=== PATIENT | female | born 1950 | race Caucasian/White ===

== ENCOUNTER → 2016-06-03 | Outpatient (CLI) | payer OTHER | LOC: BMCIMAGING 14:22 | PROVIDERS: ATTEND Registered Nurse General Practice | DX: Z13.820 Encounter for screening for osteoporosis (principal); M85.80 Other specified disorders of bone density and structure, unspecified site ==

== ENCOUNTER 2017-01-27 20:48 | Emergency (ER) | payer MEDICAID ==
--- NOTE | 2017-01-27 21:01 | CPEKG ---
Heart Rate: 80 RR Interval: 750 P-R Interval: 168 QRSD Interval: 82 QT Interval: 384 QTC Interval: 443 P Chambers: 53 QRS Chambers: 15 T Wave Chambers: 65 EKG Severity - NORMAL ECG - EKG Impression: SINUS RHYTHM Electronically Signed By: Mj Machado 29-Jan-2017 11:30:34
--- NOTE | 2017-01-27 21:08 | EDPHY ---
H & P Time Seen by Provider: 01/27/17 20:53 HPI/ROS: CHIEF COMPLAINT: Left arm pain, left breast pain HISTORY OF PRESENT ILLNESS: Patient is a 66-year-old female with a history of coronary artery disease and right coronary artery stent placement in 2014. She states that over the past 2 weeks she has developed left arm discomfort. This is been constant. She also has intermittent discomfort under her left breast. She has taken a total of 3 nitroglycerin without relief. She went to 9000 feet today and stated her pain slightly worsened. She has had no shortness of breath. No nausea or vomiting. No diaphoresis. The patient states she she went for a walk on [employer] and felt slightly dizzy but did not have worsening discomfort. She has had no leg pain or swelling. No cough. No fevers or chills. REVIEW OF SYSTEMS: My complete review of systems is negative except as mentioned in the HPI. Past Medical/Surgical History: Includes coronary artery disease, hypercholesterolemia, lymphoma, GERD Past surgical history: Lymphoma excision, parathyroidectomy Social history: The patient does not smoke. She drinks wine occasionally. She denies drug use. Family history: Patient's father at age 62 coronary artery disease. The patient's mother had a carotid endarterectomy and heart issues. Smoking Status: Never smoked Physical Exam: Vitals noted GENERAL: Well-appearing, in no acute distress, alert. HEENT: Eyes normal to inspection, normal pharynx, no signs of dehydration. NECK: No thyromegaly, no lymphadenopathy, supple. RESPIRATORY: Clear to auscultation bilaterally, no rales, rhonchi or wheezing. No chest wall tenderness palpation. CVS: Regular rate and rhythm, no rubs, murmurs, or gallops. ABDOMEN: Soft, nontender, nondistended, no organomegaly. BACK: Normal to inspection, no CVA tenderness. SKIN: Normal color, no rash, warm, dry. No pallor. EXTREMITIES: No pedal edema, no calf tenderness, no Homans sign or cords, no joint swelling. Normal appearing left upper extremity with no tenderness to palpation. NEURO/PSYCH: Alert and oriented x3, normal mood and affect, normal motor sensory exam. No obvious cranial nerve deficit. Constitutional: Initial Vital Signs Temperature (C) 36.5 C 01/27/17 21:03 Heart Rate 76 01/27/17 21:03 Respiratory Rate 16 01/27/17 21:03 Blood Pressure 118/75 01/27/17 21:03 O2 Sat (%) 98 01/27/17 21:03 O2 Delivery Mode Room Air Allergies/Adverse Reactions: latex Allergy (Verified 01/27/17 20:57) nitrofurantoin [From Macrobid] Allergy (Verified 01/27/17 20:57) nitrofurantoin macrocrystalline [From Macrobid] Allergy (Verified 01/27/17 20:57 ) Sulfa (Sulfonamide Antibiotics) Allergy (Verified 01/27/17 20:57) Home Medications: Medication Instructions Recorded Cholecalciferol Vit D3 [Vitamin D3 1,000 units PO DAILY 01/23/15 (*)] Cyanocobalamin [Vitamin B12 (*)] 1,000 mcg PO DAILY 01/23/15 Herbals/Supplements -Info Only 1 ea PO DAILY 01/23/15 Aspirin EC [Aspirin EC 325 mg (*)] 325 mg PO DAILY #0 tab 01/25/15 Atorvastatin Calcium [Lipitor 40 40 mg PO DAILY #30 tab 01/25/15 mg (*)] Lisinopril [Zestril 2.5 mg (*)] 1.25 mg PO HS #15 tab 01/25/15 Nitroglycerin [Nitrostat 0.4 mg 0.4 mg SL PRN PRN #1 btl 01/25/15 (*)] Medical Decision Making - Diagnostics EKG Interpretation: EKG shows normal sinus rhythm, normal rate, normal axis, normal intervals. There are no ST or T-wave abnormalities. EKG is normal as interpreted by me. ED Course/Re-evaluation: In the emergency department I discussed possible etiologies with the patient. I answered all her questions. IV was placed. Laboratory studies, EKG and chest x-ray were ordered. Patient was given aspirin 324 mg orally. The patient states that she took 2 baby aspirin earlier this morning. As noted in the HPI, the patient took 3 nitroglycerin without relief of her arm discomfort. Patient was given a single nitroglycerin in the emergency department. On recheck the patient states she had ongoing left arm pain that was unchanged. Her breast discomfort has improved. She has no symptoms at this time. Her chemistry panel was notable for slightly elevated sodium 145. The rest of her chemistry panel was unremarkable. Troponin was negative. Her D-dimer was 0.29. Chest x-ray: No acute disease noted. 2144: I discussed the case with Dr. Abdirahman Champion. I discussed the patient's presentation, treatment in the emergency department laboratory findings. I discussed that the patient's breast discomfort improved after the nitroglycerin but her arm pain remain. Dr. Champion recommended the patient be discharged with outpatient follow-up. He felt the patient's pain in arm is constant and present for 2 weeks that she had ruled out with a negative troponin. I discussed the findings with the patient. I answered all her questions. She is given warnings prior to leaving. She will return with worsening symptoms. She will follow up with Cardiology. Differential Diagnosis: My differential includes but is not limited to ACS, acute AK, dissection, aneurysm, pneumonia, pneumothorax, pulmonary embolus, musculoskeletal strain - Data Points Laboratory Results: Laboratory Results 01/27/17 21:00 01/27/17 21:00 01/27/17 01/27/17 01/27/17 21:00 21:00 21:00 WBC 5.04 10^3/uL 10^3/uL (3.80-9.50) RBC 4.47 10^6/uL 10^6/uL (4.18-5.33) Hgb 14.9 g/dL g/dL (12.6-16.3) Hct 44.2 % % (38.0-47.0) MCV 98.9 fL fL (81.5-99.8) MCH 33.3 pg pg (27.9-34.1) MCHC 33.7 g/dL g/dL (32.4-36.7) RDW 12.2 % % (11.5-15.2) Plt Count 269 10^3/uL 10^3/uL (150-400) MPV 9.9 fL fL (8.7-11.7) Neut % (Auto) 51.7 % % (39.3-74.2) Lymph % (Auto) 40.3 % % (15.0-45.0) [place] % (Auto) 5.8 % % (4.5-13.0) Eos % (Auto) 1.4 % % (0.6-7.6) Baso % (Auto) 0.6 % % (0.3-1.7) Nucleat RBC Rel Count 0.0 % % (0.0-0.2) Absolute Neuts (auto) 2.61 10^3/uL 10^3/uL (1.70-6.50) Absolute Lymphs (auto) 2.03 10^3/uL 10^3/uL (1.00-3.00) Absolute Monos (auto) 0.29 10^3/uL L 10^3/uL (0.30-0.80) Absolute Eos (auto) 0.07 10^3/uL 10^3/uL (0.03-0.40) Absolute Basos (auto) 0.03 10^3/uL 10^3/uL (0.02-0.10) Absolute Nucleated RBC 0.00 10^3/uL 10^3/uL (0-0.01) Immature Gran % 0.2 % % (0.0-1.1) Immature Gran # 0.01 10^3/uL 10^3/uL (0.00-0.10) D-Dimer 0.29 ug/mLFEU ug/mLFEU (0.00-0.50) Sodium 145 mEq/L H mEq/L (134-144) Potassium 3.8 mEq/L mEq/L (3.5-5.2) Chloride 101 mEq/L mEq/L (97-110) Carbon Dioxide 28 mEq/l mEq/l (22-31) Anion Gap 16 mEq/L mEq/L (8-16) BUN 16 mg/dL mg/dL (7-23) Creatinine 0.8 mg/dL mg/dL (0.6-1.0) Estimated GFR > 60 Glucose 95 mg/dL mg/dL (70-100) Calcium 10.1 mg/dL mg/dL (8.5-10.4) Troponin I < 0.012 ng/mL ng/mL (0.000-0.034) Medications Given: Discontinued Medications Aspirin (Aspirin) 324 mg PO EDNOW ONE Stop: 01/27/17 21:13 Last Admin: 01/27/17 21:16 Dose: 324 mg Nitroglycerin (Nitrostat) 0.4 mg SL ONCE ONE Stop: 01/27/17 21:13 Last Admin: 01/27/17 21:16 Dose: 0.4 mg Departure - Departure Disposition: Home, Routine, Self-Care Clinical Impression: Chest pain Qualifiers: Chest pain type: unspecified Qualified Code(s): R07.9 - Chest pain, unspecified Condition: Good Instructions: Chest Pain (ED) Additional Instructions: Return with increasing chest pain, arm pain, shortness of breath, dizziness, lightheadedness, or any other concerns. You need close follow-up with Cardiology. Call Dr. Blanco's office tomorrow to make an appointment. Referrals: NONE *PRIMARY CARE P,. [Primary Care Provider] - As per Instructions Mark Blanco MD [Medical Doctor] - 1-2 days without fail
[2017-01-27] MEDS ORDERED: ASPIRIN 81 MG CHEWABLE TAB PO ONE (21:12)
[2017-01-27] MEDS ORDERED: NITROGLYCERIN 0.4 MG BTL SL ONE (21:12)
[2017-01-27] MEDS ORDERED: ASPIRIN 81 MG CHEWABLE TAB ONE (21:13)
[2017-01-27 21:17] LABS: % IMMATURE GRANULYOCYTES 0.2 % (0.0-1.1); ABSOLUTE IMMATURE GRANULOCYTES 0.01 10^3/uL (0.00-0.10); ADD DIFF? NO; ADD MORPH? NO; ADD SCAN? NO; ATYPICAL LYMPHOCYTE FLAG 10 (0-99); FRAGMENT RBC FLAG 0 (0-99); HEMATOCRIT 44.2 % (38.0-47.0); HEMOGLOBIN 14.9 g/dL (12.6-16.3); LEFT SHIFT FLG 0 (0-99); LIPEMIA HEMOLYSIS FLAG 80 (0-99); MEAN CELL HEMOGLOBIN 33.3 pg (27.9-34.1); MEAN CELL HEMOGLOBIN CONCENTR. 33.7 g/dL (32.4-36.7); MEAN CELL VOLUME 98.9 fL (81.5-99.8); MEAN PLATELET VOLUME 9.9 fL (8.7-11.7); PLATELET CLUMPS FLAG 10 (0-99); PLATELET COUNT 269 10^3/uL (150-400); RED BLOOD CELL COUNT 4.47 10^6/uL (4.18-5.33); RED CELL DISTRIBUTION WIDTH 12.2 % (11.5-15.2)
[2017-01-27 21:26] LABS: ANION GAP 16 mEq/L (8-16); CALCIUM 10.1 mg/dL (8.5-10.4); CARBON DIOXIDE 28 mEq/l (22-31); CHLORIDE 101 mEq/L (97-110); CREATININE 0.8 mg/dL (0.6-1.0); GLOMERULAR FILTRATION RATE > 60; GLUCOSE 95 mg/dL (70-100); POTASSIUM 3.8 mEq/L (3.5-5.2); SODIUM 145 mEq/L (134-144)
[2017-01-27 21:35] LABS: TROPONIN I < 0.012 ng/mL (0.000-0.034)
[2017-01-27 21:46] VITALS: RESP 14
[2017-01-27 21:48] VITALS: BP 115/76; PULSE 67; O2SAT 97
[2017-01-27 22:03] VITALS: TEMP 97.7
== END 2017-01-27 21:57 | disposition home or self-care (01) ==
LOC: CED 20:48
DX: R07.9 Chest pain, unspecified (principal); I25.10 Atherosclerotic heart disease of native coronary artery without angina pectoris; Z79.82 Long term (current) use of aspirin; Z91.040 Latex allergy status
CPT/HCPCS: 71020-PO; 80048-PO; 84484-PO; 85025-PO; 85378-PO